=== PATIENT | female | born 1985 | race Caucasian/White ===

== ENCOUNTER 2022-05-06 19:50 | Emergency (ER) | payer MEDICAID ==
[~2022-05-06] VITALS: Ht 165.1 cm; Wt 77.1 kg
--- NOTE | 2022-05-06 20:26 | NUR ---
DR ROJAS INTO EVAL PATIENT.
[2022-05-06] MEDS ORDERED: OXYCODONE/APAP 5-325 MG TABLET ONE (20:46)
[2022-05-06] MEDS: OXYCODONE/APAP 5-325 MG TABLET PO ONE (20:48)
[2022-05-06] MEDS ORDERED: OXYC-128 PO (21:45)
[2022-05-06] MEDS ORDERED: ONDA4TAB5 PO (21:45)
--- NOTE | 2022-05-06 22:04 | NUR ---
Patient discharged to home in stable condition. Written and verbal after care instructions given. Patient verbalizes understanding of instructions. Stressed follow up or return to ER for worsening s/s. pt ambulated with steady gait. no chest pain. no SOB. AOx4. right wrist wrapped with connie wrap
[2022-05-06 22:06] VITALS: BP 141/85
== END 2022-05-06 22:06 | disposition home or self-care (01) ==
LOC: ER 19:51
DX: S16.1XXA Strain of muscle, fascia and tendon at neck level, initial encounter (principal); S40.012A Contusion of left shoulder, initial encounter; S63.501A Unspecified sprain of right wrist, initial encounter; S39.012A Strain of muscle, fascia and tendon of lower back, initial encounter; V49.40XA Driver injured in collision with unspecified motor vehicles in traffic accident, initial encounter; Y92.410 Unspecified street and highway as the place of occurrence of the external cause
CPT/HCPCS: 71045; 72072; 72100; 73020; 73110; A4663